=== PATIENT | male | born 2005 | race Native Hawaiian/Other Pacific Islander ===

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

== ENCOUNTER 2023-01-13 15:38 | Outpatient (AMB) | payer OTHER, SELFPAY ==
[2023-01-13 15:40] VITALS: BP 126/82; PULSE 59; O2SAT 98; BMI 27.8
--- NOTE | 2023-01-13 15:40 | MHC.PC.OV ---
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 Required: No Allergies cashew nut Allergy (Intermediate, Verified 01/13/23 15:53) Anaphylaxis pistachio nut Allergy (Intermediate, Verified 01/13/23 15:53) Anaphylaxis Medication List - Last Reconciled 01/13/23 by ARINA Dennis epinephrine IM Tobacco use date assessed: 01/13/23 Dental Screening Dental Screen Date: 01/13/23 Did you have a dental visit in the last 12 months?: Yes Did you have a dental problem in the last 6 months where you did not have access to dental care?: No Was dental information given to patient?: Patient has dentist HPI CLAIMS ADMINISTRATOR/ Est Care HPI Details Patient is a 17-year-old male who presents today to [facility] care. Previous PCP at [facility] in [place], no medical records, will request immunization record, last visit about 6 months ago per patient. Medical history significant for environmental and seasonal allergies, patient reports that he takes dhud-ptg-[id number] allergy medication, does not remember the name. Patient reports tetanus vaccine in the past 10 years. Up-to-date with dental exam. Reports eye exam 6 months ago. Patient lives with his mother, stepfather and sister, he goes to college and studying construction. Denies concerns. [facility] Medical History No known health problems Surgical History History of surgery on arm Family History Mother No problems noted. Father No problems noted. Social History Housing: Other (dorm room ) Patient Tobacco Use Status: Never used Tobacco service: No Current occupational status: employed (employed through schooling/sports internship ) Cognitive needs: No Hearing needs: No Vision needs: No Questionnaire PHQ-9 Over the last 2 weeks, how often have you been bothered by any of the following problems? 1. Little interest or pleasure in doing things: not at all 2. Feeling down, depressed, or hopeless: not at all 3. Trouble falling or staying asleep, or sleeping too much: not at all 4. Feeling tired or having little energy: not at all 5. Poor appetite or overeating: not at all 6. Feeling bad about yourself - or that you are a failure or have let yourself or your family down: not at all 7. Trouble concentrating on things, such as reading the newspaper or watching television: not at all 8. Moving or speaking so slowly that other people could have noticed. Or the opposite - being so fidgety or restless that you have been moving around a lot more than usual: not at all 9. Thoughts that you would be better off or of hurting yourself in some way: not at all Total score: 0 Depression Screening Interpretation: Negative 48082 - PHQ-9 Billing: Yes Source: Developed by Drs. Raji Gonzalez, Frances Sheets, Davon Lazcano and colleagues, with an educational evelin from [employer]. Thrive Questionnaire Date Thrive assessed: 01/13/23 I am a: Patient What is your living situation today?: I have a steady place to live Within the past 12 months, did the food you bought not last and you didn't have the money to get more?: Never true Within the past 12 months, did you worry whether your food would run out before you got money to buy more?: Never true Currently or been in a relationship where the following occur: no concerns reported AUDIT C Alcohol Use Questionnaire (AUDIT-C) 1. How often do you have a drink containing alcohol?: Never 2. How many drinks containing alcohol do you have on a typical day when you are drinking?: 1 or 2 3. How often do you have six or more drinks on one occasion?: Never Total Score: 0 Score Reviewed/Action Taken: No JOANNA-7 AMB Questionnaire JOANNA-7 Date JOANNA - 7 assessed: 01/13/23 Feeling nervous, anxious, or on edge: 1 = Several days Not being able to stop or control worryin = Not at all Worrying too much about different things: 0 = Not at all Trouble relaxin = Not at all Being so restless that it is hard to sit still: 0 = Not at all Becoming easily annoyed or irritable: 0 = Not at all Feeling afraid as if something awful might happen: 0 = Not at all Total JOANNA-7 score (0-4 normal; 5-9 mild; 10-14 moderate; 15-21 severe): 1 Source: Developed by Drs. Raji Gonzalez, Frances Sheets, Davon Lazcano and colleagues, with an educational evelin from [employer]. JOANNA-7 Assessment Billing JOANNA-7 Assessment Tool: JOANNA-7 Assessment 81407 Review of Systems Const Denies body aches, Denies chills, Denies fever(s) and Denies headache(s) Eyes Denies change in vision ENT Denies dizziness, Denies otalgia, Denies headache(s), Denies nasal discharge, Denies sinus pain and Denies sore throat Card Denies chest pain, Denies edema, Denies lightheadedness and Denies dyspnea Resp Denies dyspnea and Denies wheezing GI Denies abdominal pain, Denies constipation, Denies diarrhea, Denies nausea and Denies vomiting Denies dysuria Musc Denies myalgias Skin/Breast Denies rash Neuro Denies dizziness and Denies headache(s) Aller/Immun Denies wheezing Physical exam (Primary Care) Vital Signs: Last Vital Signs Pulse 59 01/13/23 15:40 BP 126/82 01/13/23 15:40 Pulse Ox 98 01/13/23 15:40 Oxygen Delivery Method Room Air 01/13/23 15:40 BMI result Body Mass Index 27.8 Tobacco/Smoking Status: Tobacco use Status Tobacco use date assessed 01/13/23 01/13/23 15:48 Patient Tobacco Use Status Never used Tobacco 01/13/23 15:48 PHQ-9: PHQ-9 Score PHQ-9: Total score 0 01/13/23 15:48 Depression Screening Interpretation: Negative Thrive Assessment: Date of Thrive Assessment Date Thrive assessed 01/13/23 01/13/23 15:48 Currently or been in a relationship where the following occur: no concerns reported Const General: cooperative and no acute distress Orientation/consciousness: patient oriented x3 HENMT Head: Yes normocephalic and Yes atraumatic Ears: TM's normal bilaterally Face and sinus: Yes sinuses nontender Mouth: oropharynx normal and moist mucous membranes Throat: Yes posterior oropharynx normal Eyes General: appearance normal, both eyes and all related structures Pupils: Equal, round and reactive pupils present EOM: EOMs intact bilaterally Neck Neck: Yes normal visual inspection, Yes full ROM and Yes no lymphadenopathy Thyroid: Thyroid normal Resp Effort & Inspection: normal respiratory effort and able to speak in complete sentences Auscultation: clear to auscultation bilaterally, no crackles, no rales, no rhonchi and no wheezes Cardio Rate: regular rate Rhythm: regular rhythm Heart sounds: S1 normal heart sound present, S2 normal heart sound present and no murmurs GI Palpation (GI): Soft to palpation, not firm, nontender, no guarding, not rigid and no hepatosplenomegaly Auscultation: normal bowel sounds General: No CVA tenderness Back/Spine/Pelvis Back: No CVA tenderness Skin General skin exam: no rashes or lesions noted Neuro General: patient oriented x3 Cranial nerves: Yes Equal, round and reactive pupils present Gait exam (Neuro): Normal gait present Extrem General: Yes full ROM and No edema Assessment and Plan Assessment & Plan (1) Encounter to establish care: Code(s): Z.89 - Persons encountering health services in other specified circumstances Plan: Patient presents to establish care, blood work ordered (2) Environmental and seasonal allergies: Code(s): J30.89 - Other allergic rhinitis Plan: Patient reports that he takes duov-lwh-bppakvg allergy medication -does not remember the name Orders: Orders Vitamin D 25-OH Total Today - Persons encountering health services in other specified circumstances TSH reflex Free T4 Today - Persons encountering health services in other specified circumstances Comprehensive Met. Panel Today - Persons encountering health services in other specified circumstances Vitamin B12 and Folate Today - Persons encountering health services in other specified circumstances Complete Blood Count Auto Diff Today - Persons encountering health services in other specified circumstances Coding Level of Care Code New Pt Level 3 (77020) Diagnoses Encounter to establish care Environmental and seasonal allergies J30. Additional Codes JOANNA-7 Assessment Billing - JOANNA-7 Assessment Tool: JOANNA-7 Assessment [id number] ([id number])
== END 2023-01-13 16:03 | disposition home or self-care (01) ==
PROVIDERS: PCP Nurse Practitioner Family; Visit Provider Nurse Practitioner Family
DX: Z76.89 Persons encountering health services in other specified circumstances (principal); J30.89 Other allergic rhinitis
CPT/HCPCS: 99203

== ENCOUNTER 2023-01-13 16:19 | Outpatient (REF) | payer OTHER, SELFPAY ==
[2023-01-13 16:39] LABS: MANUAL DIFF FLAG NO
[2023-01-13 16:52] LABS: Basophils Percent Auto 0.3 % (0-2); Eosinophils Absolute Auto 0.1 X10*3/uL (0.0-0.4); Hematocrit 41.8 % (42.0-52.0); Hemoglobin 14.1 g/dl (14.0-18.0); Imm Gran Abs Auto 0.02 X10*3/uL (0.00-0.03); Imm Gran Pct Auto 0.3 % (0.0-0.4); Lymphocytes Absolute Auto 1.6 X10*3/uL (1.2-4.9); Mean Corpuscular HGB Conc 33.7 g/dl (31.0-36.0); Mean Corpuscular Volume 85.8 fL (80.0-98.0); Mean Platelet Volume 8.9 fL (9.4-12.4); Monocytes Absolute Auto 0.7 X10*3/uL (0.1-1.2); Monocytes Percent Auto 11.6 % (2-11); Neutrophils Absolute Auto 3.4 x10*3/uL (2.0-8.3); Neutrophils Percent Auto 58.8 % (45-73); Platelet Count 283 X10*3/uL (160-400); Red Blood Count 4.87 X10*6/uL (4.60-5.80); Red Cell Distribution Width 11.9 % (11.0-16.0); White Blood Count 5.8 X10*3/uL (4.8-10.8)
[2023-01-13 18:06] LABS: Alanine Aminotransferase 50 U/L (0-40); Albumin Level 4.7 g/dL (3.5-5.0); Alkaline Phosphatase 46 U/L (39-117); Anion Gap 14 (12-20); Aspartate Amino Transferase 84 U/L (5-37); Bilirubin Total 0.4 mg/dL (0.0-1.0); Blood Urea Nitrogen 16 mg/dL (9-16); Calcium 9.8 mg/dL (8.4-10.2); Carbon Dioxide 27 mmol/L (22-29); Chloride 102 mmol/L (96-108); Estimated Glomerular Filt Rate > 60; Glucose Random 89 mg/dL (60-115); Potassium 3.9 mmol/L (3.3-5.1); Sodium 139 mmol/L (135-145)
[2023-01-13 18:22] LABS: TSH reflex Free T4 0.75 uIU/mL (0.32-4.0); Vitamin D 25-OH Total 30.1 ng/mL (>30)
[2023-01-13 18:30] LABS: Folate 14.2 ng/mL (> or = 4.0); Vitamin B12 366 pg/mL (200-900)
== END 2023-01-13 16:20 | disposition home or self-care (01) ==
LOC: HO.LAB 16:19
PROVIDERS: Visit Provider Nurse Practitioner Family
DX: Z76.89 Persons encountering health services in other specified circumstances (principal); Z20.2 Contact with and (suspected) exposure to infections with a predominantly sexual mode of transmission; R79.89 Other specified abnormal findings of blood chemistry
CPT/HCPCS: 36415; 80053; 82306; 82607; 82746; 84443; 85025

== ENCOUNTER 2023-02-25 13:56 | Outpatient (REF) | payer OTHER, SELFPAY ==
[2023-02-25 14:55] LABS: Alanine Aminotransferase 25 U/L (0-40); Albumin Level 4.7 g/dL (3.5-5.0); Alkaline Phosphatase 49 U/L (39-117); Aspartate Amino Transferase 17 U/L (5-37); Bilirubin Direct 0.1 mg/dL (0.0-0.5); Bilirubin Total 0.4 mg/dL (0.0-1.0); Total Protein 8.1 g/dL (6.5-8.0)
[2023-02-26 03:57] LABS: HBS Num1 1.89 mIU/mL (0-7.99); HBc Num1 0.08 S/CO (0.00-0.79); Hepatitis A Antibody IgM 0.25 Index (0-0.79); Hepatitis B Core Antibody Nonreactive (Nonreactive); Hepatitis B Surface Antigen Negative (Negative); ~HepC Num1 0.07 S/CO (0.00-0.79); ~Hepatitis A Antibody IgM Nonreactive (Nonreactive); ~Hepatitis B Surface Antibody NONREACTIVE (Nonreactive); ~Hepatitis C Antibody Nonreactive (Nonreactive)
== END 2023-02-25 13:57 | disposition home or self-care (01) ==
LOC: HO.LAB 13:56
PROVIDERS: PCP Nurse Practitioner Family; Visit Provider Nurse Practitioner Family
DX: R79.89 Other specified abnormal findings of blood chemistry (principal)
CPT/HCPCS: 36415; 80076; 86704; 86706; 86709; 86803; 87340

== ENCOUNTER 2023-11-16 08:46 | Outpatient (AMB) | payer BC, SELFPAY ==
--- NOTE | 2023-11-16 08:50 | MHC.PC.OV ---
Vital Signs 11/16/23 08:54 Height 5 ft 6 in Weight 163 lb 4 oz BMI 26.3 BP 120/60 Blood Pressure Location Lt brachial Position Sitting Pulse 66 Pulse Source Pulse Oximeter Pulse Oximetry (%) 99 Oxygen Delivery Method Room Air Intake Visit Reasons: Annual exam Intake Note: Patient is here today for a physical, KARMEN from [place] Tester Required: No Tour Escort: Not Required per policy Accompanied by: Self / Same As Patient Allergies cashew nut Allergy (Intermediate, Verified 11/16/23 09:19) Anaphylaxis pistachio nut Allergy (Intermediate, Verified 11/16/23 09:19) Anaphylaxis Seasonal Allergies Allergy (Intermediate, Verified 11/16/23 09:19) Runny Nose Medication List - Last Reconciled 11/16/23 by Bairon Dennison MD epinephrine 0.3 mg (0.3 mL) IM ONCE Tobacco use date assessed: 11/16/23 Dental Screening Dental Screen Date: 11/16/23 Did you have a dental visit in the last 12 months?: Yes Did you have a dental problem in the last 6 months where you did not have access to dental care?: No Was dental information given to patient?: Patient has dentist HPI Annual exam HPI Details 18-year-old male presents to the office requesting an annual physical. [facility] Medical History No known health problems Surgical History History of surgery on arm Family History Mother No problems noted. Father Substance use disorder Social History Housing: Other (dorm room ) Alcohol intake: never Patient Tobacco Use Status: Never used Tobacco e-Cigarette/Vaping Use: Never Used Second Hand Smoke Exposure: No service: No Current occupational status: employed (employed through schooling/information technology internship ) Cognitive needs: No Hearing needs: No Vision needs: No Questionnaire PHQ-9 Over the last 2 weeks, how often have you been bothered by any of the following problems? 1. Little interest or pleasure in doing things: not at all 2. Feeling down, depressed, or hopeless: not at all 3. Trouble falling or staying asleep, or sleeping too much: not at all 4. Feeling tired or having little energy: not at all 5. Poor appetite or overeating: not at all 6. Feeling bad about yourself - or that you are a failure or have let yourself or your family down: not at all 7. Trouble concentrating on things, such as reading the newspaper or watching television: not at all 8. Moving or speaking so slowly that other people could have noticed. Or the opposite - being so fidgety or restless that you have been moving around a lot more than usual: not at all 9. Thoughts that you would be better off or of hurting yourself in some way: not at all Total score: 0 Depression Screening Interpretation: Negative Depression Screening Done: Yes Source: Developed by Drs. Raji Gonzalez, Frances Sheets, Davon Lazcano and colleagues, with an educational evelin from [employer]. Thrive Questionnaire Date Thrive assessed: 11/16/23 I am a: Patient What is your living situation today?: I have a steady place to live Within the past 12 months, did the food you bought not last and you didn't have the money to get more?: Never true Within the past 12 months, did you worry whether your food would run out before you got money to buy more?: Never true Do you have trouble paying for medicines?: No Do you have trouble getting transportation to medical appointments?: No Do you have trouble paying your heating and electricity bill?: No Do you have trouble taking care of your child, family member or friend?: No Do you have trouble with day-to-day activities such as bathing, preparing meals, shopping, managing finances, etc.?: No Are you currently unemployed and looking for a job?: No Are you interested in more education?: No Currently or been in a relationship where the following occur: No concerns reported THRIVE Score: 0 AUDIT C Alcohol Use Questionnaire (AUDIT-C) 1. How often do you have a drink containing alcohol?: Never Total Score: 0 JOANNA-7 AMB Questionnaire JOANNA-7 Date JOANNA - 7 assessed: 11/16/23 Feeling nervous, anxious, or on edge: 0 = Not at all Not being able to stop or control worryin = Not at all Worrying too much about different things: 0 = Not at all Trouble relaxin = Not at all Being so restless that it is hard to sit still: 0 = Not at all Becoming easily annoyed or irritable: 0 = Not at all Feeling afraid as if something awful might happen: 0 = Not at all Total JOANNA-7 score (0-4 normal; 5-9 mild; 10-14 moderate; 15-21 severe): 0 Source: Developed by Drs. Raji Gonzalez, Frances Sheets, Davon Lazcano and colleagues, with an educational evelin from [employer]. Physical exam (Primary Care) Vital Signs: Last Vital Signs Pulse 66 11/16/23 08:54 BP 120/60 11/16/23 08:54 Pulse Ox 99 11/16/23 08:54 Oxygen Delivery Method Room Air 11/16/23 08:54 BMI result Body Mass Index 26.3 Tobacco/Smoking Status: Tobacco use Status Tobacco use date assessed 11/16/23 11/16/23 08:55 Patient Tobacco Use Status Never used Tobacco 11/16/23 08:57 e-Cigarette/Vaping Use Never Used 11/16/23 08:57 PHQ-9: PHQ-9 Score PHQ-9: Total score 0 11/16/23 08:53 Depression Screening Interpretation: Negative Thrive Assessment: Date of Thrive Assessment Date Thrive assessed 11/16/23 11/16/23 08:53 Currently or been in a relationship where the following occur: No concerns reported Const General: cooperative and healthy appearing Nutritional Appearance: well nourished Orientation/consciousness: patient oriented x3 Limitations: no limitations HENMT Head: Yes normal to inspection Eyes General: appearance normal, both eyes and all related structures Neck Neck: Yes normal visual inspection Chest Chest palpation & inspection: normal palpation of entire chest wall Resp Effort & Inspection: normal respiratory effort Neuro General: patient oriented x3 Assessment and Plan Assessment & Plan (1) Annual physical exam: Code(s): Z00.00 - Encounter for general adult medical examination without abnormal findings Plan: Blood work ordered. Albuterol inhaler ordered for reactive airway disease. Will call with the results. Coding Level of Care Code Est Pt Prev Care 18-39y(12045) Diagnoses Annual physical exam Z00.00
[2023-11-16 08:54] VITALS: BP 120/60; PULSE 66; O2SAT 99; BMI 26.3
== END 2023-11-16 09:23 | disposition home or self-care (01) ==
PROVIDERS: PCP Internal Medicine; Visit Provider Internal Medicine
DX: Z00.00 Encounter for general adult medical examination without abnormal findings (principal)
CPT/HCPCS: 99395

== ENCOUNTER 2024-06-28 11:05 | Outpatient (AMB) | payer BC, SELFPAY ==
--- NOTE | 2024-06-28 11:15 | MHC.PC.OV ---
Vital Signs 06/28/24 11:16 Height 5 ft 6 in Weight 157 lb BMI 25.3 BP 118/64 Blood Pressure Location Lt brachial Position Sitting Pulse 67 Pulse Source Pulse Oximeter Pulse Oximetry (%) 98 Oxygen Delivery Method Room Air Intake Visit Reasons: eye infection Store Associate Required: No Accompanied by: Self / Same As Patient Allergies cashew nut Allergy (Intermediate, Verified 06/28/24 11:38) Anaphylaxis pistachio nut Allergy (Intermediate, Verified 06/28/24 11:38) Anaphylaxis Seasonal Allergies Allergy (Intermediate, Verified 06/28/24 11:38) Runny Nose Medication List - Last Reconciled 06/28/24 by Emily Brand PA-C epinephrine 0.3 mg (0.3 mL) IM ONCE Tobacco use date assessed: 06/28/24 Dental Screening Dental Screen Date: 06/28/24 Did you have a dental visit in the last 12 months?: Yes Did you have a dental problem in the last 6 months where you did not have access to dental care?: No Was dental information given to patient?: Patient has dentist HPI eye infection HPI Details 19-year-old male with past medical history of seasonal allergies last seen 10/2023 coming in for acute problem. Presenting with a persistent eyelid sty. The sty has been present since late May, initially treated with erythromycin ointment he had at home and warm compresses. Despite these efforts and additional attempts to massage as per [facility]' recommendation, the condition remains unresponsive. The persistent sty has resisted drainage, and compresses now seem to exacerbate inflammation and erythema. [facility] Medical History No known health problems Surgical History History of surgery on arm Family History Mother No problems noted. Father Substance use disorder Social History Housing: Other (dorm room ) Alcohol intake: never Patient Tobacco Use Status: Never used Tobacco e-Cigarette/Vaping Use: Never Used Second Hand Smoke Exposure: No service: No Current occupational status: employed (employed through schooling/exercise science internship ) Cognitive needs: No Hearing needs: No Vision needs: No Questionnaire PHQ-9 Over the last 2 weeks, how often have you been bothered by any of the following problems? 1. Little interest or pleasure in doing things: not at all 2. Feeling down, depressed, or hopeless: not at all 3. Trouble falling or staying asleep, or sleeping too much: not at all 4. Feeling tired or having little energy: not at all 5. Poor appetite or overeating: not at all 6. Feeling bad about yourself - or that you are a failure or have let yourself or your family down: not at all 7. Trouble concentrating on things, such as reading the newspaper or watching television: not at all 8. Moving or speaking so slowly that other people could have noticed. Or the opposite - being so fidgety or restless that you have been moving around a lot more than usual: not at all 9. Thoughts that you would be better off or of hurting yourself in some way: not at all Total score: 0 Depression Screening Interpretation: Negative Depression Screening Done: Yes Source: Developed by Drs. Raji Gonzalez, Frances Sheets, Davon Lazcano and colleagues, with an educational evelin from [employer] Thrive Questionnaire Date Thrive assessed: 06/28/24 I am a: Patient What is your living situation today?: I have a steady place to live Within the past 12 months, did the food you bought not last and you didn't have the money to get more?: Never true Within the past 12 months, did you worry whether your food would run out before you got money to buy more?: Never true Do you have trouble paying for medicines?: No Do you have trouble getting transportation to medical appointments?: No Do you have trouble paying your heating and electricity bill?: No Do you have trouble taking care of your child, family member or friend?: No Do you have trouble with day-to-day activities such as bathing, preparing meals, shopping, managing finances, etc.?: No Are you currently unemployed and looking for a job?: No Are you interested in more education?: No Please select the resources that you would like help with: None Currently or been in a relationship where the following occur: No concerns reported THRIVE Score: 0 AUDIT C Alcohol Use Questionnaire (AUDIT-C) 1. How often do you have a drink containing alcohol?: Never 3. How often do you have six or more drinks on one occasion?: Never Total Score: 0 JOANNA-7 AMB Questionnaire JOANNA-7 Date JOANNA - 7 assessed: 06/28/24 Feeling nervous, anxious, or on edge: 0 = Not at all Not being able to stop or control worryin = Not at all Worrying too much about different things: 0 = Not at all Trouble relaxin = Not at all Being so restless that it is hard to sit still: 0 = Not at all Becoming easily annoyed or irritable: 0 = Not at all Feeling afraid as if something awful might happen: 0 = Not at all Total JOANNA-7 score (0-4 normal; 5-9 mild; 10-14 moderate; 15-21 severe): 0 Source: Developed by Drs. Raji Gonzalez, Frances Sheets, Davon Lazcano and colleagues, with an educational evelin from [employer] Review of Systems Const Denies body aches, Denies chills, Denies fever(s), Denies headache(s) and Denies poor appetite Eyes Reports no additional complaints ENT Denies dysphagia, Denies dizziness, Denies headache(s) and Denies odynophagia Card Denies chest pain, Denies syncope, Denies edema, Denies irregular heart rhythm, Denies lightheadedness and Denies dyspnea Resp Denies cough and Denies dyspnea GI Denies abdominal pain, Denies constipation, Denies dysphagia, Denies diarrhea, Denies nausea, Denies odynophagia and Denies vomiting Reports no additional complaints Musc Reports no additional complaints and Denies abnormal gait Skin/Breast Reports system reviewed and no additional complaints, except as documented Neuro Denies abnormal gait, Denies dizziness, Denies syncope and Denies headache(s) Psych Reports no additional complaints Physical exam (Primary Care) Vital Signs: Last Vital Signs Pulse 67 06/28/24 11:16 BP 118/64 06/28/24 11:16 Pulse Ox 98 06/28/24 11:16 Oxygen Delivery Method Room Air 06/28/24 11:16 BMI result Body Mass Index 25.3 Tobacco/Smoking Status: Tobacco use Status Tobacco use date assessed 06/28/24 06/28/24 11:18 Patient Tobacco Use Status Never used Tobacco 06/28/24 11:18 e-Cigarette/Vaping Use Never Used 06/28/24 11:18 PHQ-9: PHQ-9 Score PHQ-9: Total score 0 06/28/24 11:45 Depression Screening Interpretation: Negative Thrive Assessment: Date of Thrive Assessment Date Thrive assessed 06/28/24 06/28/24 11:18 Currently or been in a relationship where the following occur: No concerns reported Const General: cooperative, healthy appearing, comfortable and no acute distress Orientation/consciousness: patient oriented x3 HENMT Head: Yes normocephalic Ears: hearing grossly normal bilaterally General nose exam: Normal external nose present Face images: 1. stye Eyes General: appearance normal, both eyes and all related structures Conjunctivae: conjunctivae normal Neck Neck: Yes full ROM and Yes no lymphadenopathy Resp Effort & Inspection: normal respiratory effort Auscultation: clear to auscultation bilaterally, no crackles, no rales, no rhonchi and no wheezes Cardio Rate: regular rate Rhythm: regular rhythm Skin General skin exam: no rashes or lesions noted Neuro General: patient oriented x3 Gait exam (Neuro): Normal gait present Extrem General: Yes normal to inspection, Yes full ROM and No edema Psych Affect: normal affect Attitude: cooperative Insight: Good insight present (Psych) Judgement: Good judgement present (Psych) Coding Level of Care Code Est Pt Level 3 (13803) Diagnoses Stye H00.019 Assessment & Plan Assessment & Plan (1) Stye: Code(s): H00.019 - Hordeolum externum unspecified eye, unspecified eyelid Category: Medical Plan: The patient will begin a new topical antibiotic regimen different from erythromycin. He is instructed to maintain eyelid hygiene using baby shampoo to prevent potential reinfection, and warm compresses should be applied directly on the eyelid two to three times daily for optimal effect. Continuous communication via the patient portal is recommended to monitor progress, with oral antibiotics as a last resort if other measures fail. Plan Patient was informed and verbally consented to the use of an ambient scribe for clinic note documentation during this visit. This note was constructed using voice recognition software. While every effort has been made to ensure accuracy and outpatient facility physical therapist, still areas may have been included sometimes these areas may affect the content or meeting of the given symptoms. Total time spent caring for the patient today was 20 minutes. This includes time spent before the visit reviewing the chart, time spent during the visit, and time spent after the visit and documentation. Medications: New erythromycin 0.5 inches ophthalmic (eye) BID 3.5 grams 0RF
[2024-06-28 11:16] VITALS: BP 118/64; PULSE 67; O2SAT 98; BMI 25.3
--- OUTSIDE RECORDS SUMMARY | 2024-06-28 13:23 | XMS_ITS | Encounter Summary ---
Author Organization [facility] Address [address] [place] [address] Phone Care Team Providers Care Disability Manager Name Role Phone Verna Coronado NP Primary Care Provider [phone] Encounter Details Date Type Department Care Team (Late st Contact Info) Description 12/16/2016 Conversion Encounter [facility] [address] [address] Social History Tobacco Use Types Packs/Day Years Used Date Smoking Tobacco: Never Assessed Sex and Gender Information Value Date Recorded Sex Assigned at Not on file Legal Sex Male 6:32 PM EDT Gender Identity Not on file Sexual Orientation Not on file documented as of this encounter Plan of Treatment Not on file documented as of this encounter Visit Diagnoses Not on filedocumented in this encounter Care Teams Disability Manager Relationship Specialty Start Date End Date Verna Coronado NP [address] [place] [address] PCP - General Pediatrics 10/19/22 documented as of this encounter
--- OUTSIDE RECORDS SUMMARY | 2024-06-28 13:23 | XMS_ITS | Clinical Summary ---
Author Organization [facility] Address [address] [place] [address] Care Team Providers Care High School Science Tutor Name Role Phone Mina Centeno MD Primary Care Provider Unavaila ble Mina Centeno MD Unavailable Unavailable Allergies Active Allergy Reactions Criticality Noted Date Comments Nuts 03/05/2014 Medications Montelukast Sodium (SINGULAIR) 5 MG chewable tablet CHEW AND SWALLOW 1 TABLET DAILY. 30 3 02/19/2014 Active Mometasone Furoate (Nasonex) 50 MCG/ACT nasal spray USE 1 SPRAY IN EACH NOSTRIL TWICE DAILY. 1 2 07/12/2014 Active Active Problems Problem Noted Date Diagnosed Date Viral tonsillitis 07/16/2014 Overview (06/05/2023): Impression - 16Jul2014: Rapid strep negative, PE not convincing for strep so culture not sent. Llikely viral in origin, will give 6 doses of prednisone to try to decrease tonsil size. Spoke with dad about normal progression of illness and discussed supportive care measures Allergic rhinitis 07/08/2014 Asthma, mild intermittent 03/05/2014 Overview (06/05/2023): Impression - 16Jul2014: Well controlled on Singulair. No albuterol use in over a year per patient and dad. Has never been on ICS as an older child. Should consider trialing off Singulair and using Claritin or Zyrtec for allergies but dad wanted to talk to Dr. Centeno about this Immunizations Name Administration Dates Next Due DTaP 08/01/2007, 5,2003,07/15,2003 Hep B (adult) 2003,2003,2003 Hib (PRP-OMP) 06/09/2004, 4,2003,05/14 IPV 08/01/2007, 4,2003,05/14 Influenza (SEASONAL) - 03/11/2014 Influenza,split(incl.purifie d surface antigen) 01/09/2013,02/23/2012 MMR 08/01/2007,03/09/2004 Meningococcal ACWY (Menactra) 03/11/2014 PCV-7 06/09/2004, 4,2003,05/14 State H1N1 Vaccine,injection 05/05/2009 Tdap 03/11/2014 Varicella 09/24/2009,03/09/2004 Social History Tobacco Use Types Packs/Day Years Used Date Smoking Tobacco: Never Assessed Sex and Gender Information Value Date Recorded Sex Assigned at Not on file Legal Sex Male 2:03 PM EDT Gender Identity Not on file Sexual Orientation Not on file Last Filed Vital Signs Vital Sign Reading Time Taken Comments Blood Pressure 94/64 01/08/2014 2:24 PM EDT Pulse - - Temperature 37.5 ??C (99.5 ??F) 07/16/2014 10:37 AM E DT Respiratory Rate - - Oxygen Saturation - - Inhaled Oxygen Concentration - - Weight 45.4 kg (100 lb) 07/16/2014 10:37 AM EDT Height 136.5 cm (4' 5.75 ) 01/08/2014 2:24 PM ED T Body Mass Index - - Plan of Treatment Health Maintenance Due Date Last Done Comments Hepatitis C Screening 2003 HPV Vaccine (1 - Male 3-dose series) 2018 COVID-19 Vaccine ( - season) 2024 Influenza (#1) 2024 03/11/2014, 12/31, 02/23/2012 DTaP/Tdap/Td (7 - Td or Tdap) 03/11/2024 03/11/2014, 08/01/2007, 09/07/2004, Additional history exists Zoster (Shingrix) (1 of 2) 2053 09/24/2009, Hep B Completed 2003, 08/31, 2003 Hib Completed 06/09/2004, 08/31, 2003, Additional history exists Pneumococcal Aged Out 06/09/2004, 10/31, 2003, Additional history exists No longer eligible based on patient's age to complete this topic MMR Completed 08/01/2007, 03/09/2004 Polio (IPV/OPV) Completed 08/01/2007, 10/31, 2003, Additional history exists Varicella Completed 09/24/2009, 03/09/2004 Meningococcal ACWY Aged Out 03/11/2014 No longer eligible based on patient's age to complete this topic Hep A Aged Out No longer eligi ble based on patient's age to complete this topic Care Teams High School Science Tutor Relationship Specialty Start Date End Date Mina Centeno MD PCP - General 12/06/22 Mina Centeno MD PCP - Backup PCP Pediatrics 06/02/23
--- OUTSIDE RECORDS SUMMARY | 2024-06-28 13:23 | XMS_ITS | Data Portability ---
Author Organization [facility] [id number] Address [address] [place] [address] Assessment No assessment recorded. Plan of Treatment Reminders Order Date Submit Date Provider Last Modified By Organization Details Last Modified Time Details Appointments None record ed. Lab None record ed. Referral None record ed. Procedures None record ed. Surgeries None record ed. Imaging None record ed. Medication Orders None record ed. Patient TargetsNo targets recorded. Patient InstructionsNo instructions recorded. Reason for Referral None Reported. Procedures Surgical History Date Name Laterality Status Provider Name and Address Organization Details Recorded Time OC-UDS Send Out Template NON DOT completed Carla Michael [facility] 09/13/2022 14:51:38 Imaging Results None recorded. Procedure Notes None recorded. Medical Equipment None Reported. Medications Name Sig Start Date Stop Date Status Note LastModified by Organization Details LastModified Time triamcinolon e acetonide 0.1 % topical cream APPLY TO AFFECTED AREA TWICE A DAY FOR 7 DAYS active Not Available Not Available No t Available hydrocortiso ne valerate 0.2 % topical ointment APPLY TO AFFECTED AREA TWICE A DAY FOR 14 DAYS active Not Available Not Available No t Available sertraline 25 mg tablet TAKE 1 TABLET BY MOUTH EVERY DAY active Not Available Not Available No t Available epinephrine 0.3 mg/0.3 mL injection, auto-injecto r PLEASE SEE ATTACHED FOR DETAILED DIRECTIONS active Not Available Not Available N ot Available Vitals None Recorded Social History None recorded. Functional Status None recorded. Mental Status None recorded. Family History Nothing Reported. Medical History No medical history recorded. Past Encounters Encounter ID Performer Location Encounter Start Date Encounter Closed Date Diagnosis/Indication Diagnosis SNOMED-CT Code Diagnosis ICD10 Code Diagnosis Note [id number] [place] [address] [facility] DWAINE Gutierrez [phone] 09/13/2022 14:30:47 09/13/2022 14:52:54 History and physical examination, occupation [id number] Z02.1 Health Concerns Section Related Observation LastModified by Organization Detai ls LastModified Time None Recorded Concern Status LastModified by Organization Details LastModified Time None Recorded Advance Directives Directive None Recorded Payers Encounter Date Sequence Insurance Name Policy Number Policy Ibrahim Covered Member ID Ibrahim Member ID Guarantor Name 09/13/2022 OC-ESCREEN Geraldo Godfrey [id number] LAINEY begum
--- OUTSIDE RECORDS SUMMARY | 2024-06-28 13:23 | XMS_ITS | Clinical Summary ---
Author Organization [facility] Address [address] [place] [phone] Phone Care Team Providers Care Machine Puller Name Role Phone Jessicadonald Verna JOHNIE Primary Care Provider [phone] Allergies Active Allergy Reactions Criticality Noted Date Comments Environmental Bunnies ,dog,dust ,dust mites ,grasses,leaves ,pollen ,trees ,mold Food Cashew Pistachio Nut (Diagnostic) Medications DiphenhydrAMINE HCl (BENADRYL ALLERGY PO) Benadryl; 0; 09/03/2014; Active 5 Active albuterol HFA 108 (90 Base) MCG/ACT inhaler Inhale 2 puffs every 6 (six) hours as needed for wheezing. Active hydrOXYzine 25 MG tabletIndicatio ns:Anxiety with depression Take 1 tablet (25 mg total) by mouth every 6 (six) hours as needed for anxiety. 10 tablet 1 1 Active Additional Information Patient not taking.Reported on 08/02/2022 triamcinolone 0.1 % creamIndication s:Irritant contact dermatitis due to plants, except food APPLY TO AFFECTED AREA TWICE A DAY FOR 7 DAYS 30 g 1 2 Active EPINEPHrine (EpiPen 2-Reinier) 0.3 MG/0.3ML injection syringeIndicati ons:Allergic reaction, subsequent encounter Inject into muscle immediately for signs of anaphylaxis AND call 911. 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 Anemia 03/10/2017 Overview (03/30/2018): Anemia, unspecified (285.9) Onset: 03/10/2017 Added by: Stacy Orozco Other acne 09/03/2014 Overview (03/30/2018): Acne (706.1) Onset: 09/03/2014 Added by: Treva Russo Allergy 09/03/2014 Overview (03/30/2018): Allergy, unspecified (995.3) Onset: 09/03/2014 Added by: Treva Russo Intrinsic eczema 09/03/2014 Overview (03/30/2018): Atopic eczema (691.8) Onset: 09/03/2014 Added by: Treva Russo Immunizations Immunization Administration Dates Next Due DTaP 5 08/01/2007, 8,09/07/2004,09/07,2003,2003,2003 ,2003,2003,2003 HPV Vaccine 9 Valent 09/09/2016,03/02/2016 Hep A, ped/adol 03/09/2018,03/10/2017 Hep B, ped/adol 2003, 4,2003,09/22,2003,2003 Hib (PRP-T) 06/09/2004, 5,2003,09/22,2003,2003,2003 ,2003 IPV 08/01/2007, 8,2003,11/24,2003,2003,2003 ,2003 Influenza, injectable, quadr ivalent, preservative free 02/02/2020,02/13/2019,03/09/2018,03/10,03/02/2016,01/15/2015 MMR 08/01/2007,03/09/2004,03/09/2004 MMRV 08/01/2007 Meningococcal Conj (Menactra) MCV4P 05/10/2019,0 01/15/2015 Pneumococcal Conjugate 06/09/2004,2004,2003,11/24,2003,2003,2003 ,2003 Tdap 01/15/2015 Varicella 09/24/2009,03/09/2004,03/09/2004 Family History Medical History Relation Name Comments No Known Problems Mother Lupe Asthma Sister Elizabeth Relation Name Status Comments Father Alive Father: Obesity , Migraines, Hypertension Maternal Grandfather Alive Materna l grandfather: Alive and well Maternal Grandmother Materna l grandmother: Thyroid disease Mother Lupe Alive Mother: Obesity , Alive and well Other 1 aunt: Diabetes mellitus Other 2 Family history of Migraines, Family history of Strabismus/amblyopia Paternal Grandfather Paterna l grandfather: Asthma Paternal Grandmother FPatern al grandmothe: Fibromyalgia Sister Elizabeth Alive Social History Tobacco Use Types Packs/Day Years Used Date Smoking Tobacco: Never Smokeless Tobacco: Never Comments:Never Smoker Alcohol Use Standard Drinks/Week Comments Not Currently 0 (1 standard drink = 0.6 oz pur e alcohol) Social Hunger/Food Answer Date Recorded In the last 12 months, did y ou or your family ever eat less than you felt you should because there wasn't enough money for food? No 08/02/2022 Stable Housing Answer Date Recorded Are you worried that in the next 2 months you may not have stable housing? No 08/02/2022 Transportation Concerns Answer Date Rec orded In the last 12 months, have you or your family ever had to go without healthcare because you didn't have a way to get there? No 08/02/2022 Hazards in Home Answer Date Recorded Think about the place you li ve. Do you have problems with any of the following? Pests (mice or roaches), mold, no/not working smoke detectors, water leaks, no window guards. No 2022 Financing Utilities Answer Date Recorde d In the last 12 months, has t he electric, gas, oil, or water company threatened to shut off your services in your home? No 08/02/2022 Safety at Home Answer Date Recorded Are you or your family worried about feeling saf e in your home? No 08/02/2022 Outside Support Answer Date Recorded Do you feel that you need mo re support from other people or programs to help you care for yourself or your family? No 08/02/2022 Understanding Health Concerns Answer Da te Recorded Do you need help understandi ng your or your child's healthcare needs (diagnosis, medications, plan, etc.)? No 08/02/2022 Financing Health Concerns Answer Date R ecorded In the last 12 months, was t here a time when your child needed to see a doctor or get medications or supplies but could not because of cost? No 08/02/2022 Missing School or Work Answer Date Pascual rded Did you or your child miss s chool or work because of a health problem that could have been avoided? No 08/02/2022 Sex and Gender Information Value Date Recorded Sex Assigned at Not on file Legal Sex Male 6:32 PM EDT Gender Identity Not on file Sexual Orientation Not on file Last Filed Vital Signs Vital Sign Reading Time Taken Comments Blood Pressure 130/60 08/02/2022 3:12 PM EDT Pulse 72 07/28/2021 3:19 PM EDT Temperature 36.3 ??C (97.3 ??F) 08/02/2022 3:12 PM ED T Respiratory Rate - - Oxygen Saturation - - Inhaled Oxygen Concentration - - Weight 74.4 kg (164 lb) 08/02/2022 3:12 PM EDT Height 167 cm (5' 5.75 ) 08/02/2022 3:12 PM EDT Body Mass Index 26.67 08/02/2022 3:12 PM EDT Plan of Treatment Health Maintenance Due Date Last Done Comments Men B Vaccine (1 of 2 - Standard) 2019 Influenza Vaccines (#1) 2023 02/04/20 23, 01/29/2022, 03/08/2021, Additional history exists COVID-19 Vaccine (4 - 2023-2 5 season) 2024 03/08/2021, 08/27/2020, 08/06/2020 DTaP,Tdap,and Td Vaccines (7 - Td or Tdap) 01/15/2025 01/15/2015, 08/01/2007, 08/01/2007, Additional history exists Hepatitis B Vaccines Completed 2003, 2003, 2003, Additional history exists HIB Vaccines Completed 06/09/2004, 11/2004, 2003, Additional history exists Pneumococcal Vaccine Completed 06/09/2004, 06/09/2004, 2003, Additional history exists IPV Vaccines Completed 08/01/2007, 05/2007, 2003, Additional history exists MMR Vaccines Completed 08/01/2007, 05/2007, 03/09/2004, Additional history exists Varicella Vaccines Completed 09/24/2009, 0 08/01/2007, 03/09/2004, Additional history exists HPV Vaccines Completed 09/09/2016, 03/02/2016 Hepatitis A Vaccines Completed 03/09/2018, 03/10/20 17 Meningococcal Vaccine Completed 05/10/2019, 015 Insurance [facility] EPO OPEN ACCESS Care Teams Machine Puller Relationship Specialty Start Date End Date Verna Coronado NP [address] [facility] [place] [address] PCP - General Pediatrics 10/19/22
--- OUTSIDE RECORDS SUMMARY | 2024-06-28 13:23 | XMS_ITS | Encounter Summary ---
Author Organization [facility] Address [address] [place] [address] Phone Care Team Providers Care Spice Blender Name Role Phone Verna Coronado NP Primary Care Provider [phone] Encounter Details Date Type Department Care Team (Late st Contact Info) Description 08/28/2014 Conversion Encounter [facility] [address] [place] [address] [place] [phone] Social History Tobacco Use Types Packs/Day Years [...] on filedocumented in this encounter Care Teams Spice Blender Relationship Specialty Start Date End Date Verna Coronado NP [address] [place] [address] [place] [id number] PCP - General Pediatrics 10/19/22 documented as of this encounter
== END 2024-06-28 11:59 | disposition home or self-care (01) ==
PROVIDERS: PCP Internal Medicine
DX: H00.019 Hordeolum externum unspecified eye, unspecified eyelid (principal)

== ENCOUNTER 2024-12-26 08:00 | Outpatient (AMB) | payer BC, SELFPAY ==
[2024-12-26 08:04] VITALS: BP 124/70; PULSE 80; TEMP 36.3; O2SAT 98; BMI 27.8
--- NOTE | 2024-12-26 08:04 | A.OFFPC_ITS ---
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 Father Substance use disorder Social History Housing: Other (dorm room ) Alcohol intake: never Patient Tobacco Use Status: Never used Tobacco e-Cigarette/Vaping Use: Never Used Second Hand Smoke Exposure: No service: No Current occupational status: employed (employed through schooling/plumber maintenance ) Cognitive needs: No Hearing needs: No Vision needs: No Questionnaire PHQ-9 Over the last 2 weeks, how often have you been bothered by any of the following problems? 1. Little interest or pleasure in doing things: not at all 2. Feeling down, depressed, or hopeless: not at all 3. Trouble falling or staying asleep, or sleeping too much: not at all 4. Feeling tired or having little energy: not at all 5. Poor appetite or overeating: not at all 6. Feeling bad about yourself - or that you are a failure or have let yourself or your family down: not at all 7. Trouble concentrating on things, such as reading the newspaper or watching television: not at all 8. Moving or speaking so slowly that other people could have noticed. Or the opposite - being so fidgety or restless that you have been moving around a lot more than usual: not at all 9. Thoughts that you would be better off or of hurting yourself in some way: not at all Total score: 0 Depression Screening Interpretation: Negative Depression Screening Done: Yes Source: Developed by Drs. Raji Gonzalez, Frances Sheets, Davon Lazcano and colleagues, with an educational evelin from [employer]. Thrive Questionnaire Date Thrive assessed: 06/28/24 I am a: Patient What is your living situation today?: I have a steady place to live Within the past 12 months, did the food you bought not last and you didn't have the money to get more?: Never true Within the past 12 months, did you worry whether your food would run out before you got money to buy more?: Never true Do you have trouble paying for medicines?: No Do you have trouble getting transportation to medical appointments?: No Do you have trouble paying your heating and electricity bill?: No Do you have trouble taking care of your child, family member or friend?: No Do you have trouble with day-to-day activities such as bathing, preparing meals, shopping, managing finances, etc.?: No Are you currently unemployed and looking for a job?: No Are you interested in more education?: No Please select the resources that you would like help with: None Currently or been in a relationship where the following occur: No concerns reported THRIVE Score: 0 AUDIT C Alcohol Use Questionnaire (AUDIT-C) 1. How often do you have a drink containing alcohol?: Monthly or less 2. How many drinks containing alcohol do you have on a typical day when you are drinking?: 1 or 2 3. How often do you have six or more drinks on one occasion?: Never Total Score: 1 JOANNA-7 AMB Questionnaire JOANNA-7 Date JOANNA - 7 assessed: 06/28/24 Feeling nervous, anxious, or on edge: 0 = Not at all Not being able to stop or control worryin = Not at all Worrying too much about different things: 0 = Not at all Trouble relaxin = Not at all Being so restless that it is hard to sit still: 0 = Not at all Becoming easily annoyed or irritable: 0 = Not at all Feeling afraid as if something awful might happen: 0 = Not at all Total JOANNA-7 score (0-4 normal; 5-9 mild; 10-14 moderate; 15-21 severe): 0 Source: Developed by Drs. Raji Gonzalez, Frances Sheets, Davon Lazcano and colleagues, with an educational evelin from [employer]. Physical exam (Primary Care) Vital Signs: Last Vital Signs Temp 97.3 F 12/26/24 08:04 Pulse 80 12/26/24 08:04 BP 124/70 12/26/24 08:04 Pulse Ox 98 12/26/24 08:04 Oxygen Delivery Method Room Air 12/26/24 08:04 BMI result Body Mass Index 27.8 Tobacco/Smoking Status: Tobacco use Status Tobacco use date assessed 12/26/24 12/26/24 08:08 Patient Tobacco Use Status Never used Tobacco 12/26/24 08:08 e-Cigarette/Vaping Use Never Used 12/26/24 08:08 PHQ-9: PHQ-9 Score PHQ-9: Total score 0 12/26/24 08:08 Depression Screening Interpretation: Negative Thrive Assessment: Date of Thrive Assessment Date Thrive assessed 06/28/24 12/26/24 08:08 Currently or been in a relationship where the following occur: No concerns reported Coding Level of Care Code Est Pt Prev Care [id number](44767) Diagnoses Encounter for annual physical exam Z00.00 Assessment & Plan Assessment & Plan (1) Encounter for annual physical exam: Code(s): Z00.00 - Encounter for general adult medical examination without abnormal findings Plan: History of Present Illness - The patient is a 19-year-old male presenting with an annual physical examination. - Reports headache and nasal congestion starting last night, with a fever this morning. - Denies other symptoms, sleeps well, and is not on any medications. - No history of smoking or drug use; occasional alcohol consumption. - Works indoors in [employer] and lives at home with family. 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 - Family status: Lives at home with family, has a 16-year-old sister. - Substance use: Denies smoking and drug use; occasional alcohol consumption. Review of Systems - General: Reports headache and fever. Denies other symptoms. - Respiratory: Reports nasal congestion. - Neurological: Denies any pain or trouble urinating. Physical Exam General: Cooperative and healthy appearing Nutritional Appearance: Well nourished Orientation/consciousness: Patient oriented x3 Limitations: No limitations Head: Normal to inspection General: Appearance normal, both eyes and all related structures Neck: Normal visual inspection Chest: Normal palpation of entire chest wall Respiratory: N ormal respiratory effort Neurology: Patient oriented x3, reports headache and congestion Results Plan 1. Headache - Advised to take Tylenol for headache relief. 2. Nasal Congestion - Suggested symptomatic relief with [id number] medications if needed. 3. Fever - Recommended monitoring symptoms and taking Tylenol as needed. 4. Preventative Care: Annual Physical Examination - Blood work ordered as part of the routine examination. Discussion Notes During the visit, I discussed with the patient the management of his headache and nasal congestion, recommending Tylenol for relief. We also talked about the importance of monitoring his symptoms and maintaining regular annual check-ups. Blood work was ordered as part of his routine examination. Patient Instructions - Take Tylenol as needed for headache and fever relief. - Monitor symptoms and seek medical attention if they worsen. - Schedule a follow-up appointment in one year for the next annual physical examination. Orders: Orders Complete Blood Count no Diff Today Z00.00 - Encounter for general adult medical examination without abnormal findings Liver Panel Today Z00.00 - Encounter for general adult medical examination without abnormal findings Thyroid Stimulating Hormone Today Z00.00 - Encounter for general adult medical examination without abnormal findings Basic Metabolic Panel Today Z00.00 - Encounter for general adult medical examination without abnormal findings UA and rflx microscopic Today Z00.00 - Encounter for general adult medical examination without abnormal findings
--- OUTSIDE RECORDS SUMMARY | 2024-12-26 08:04 | XMS_ITS | Encounter Summary ---
Author Organization [facility] Address [address] [place] [phone] Phone Care Team Providers Care Tower Loader Operator Name Role Phone Verna Coronado NP Primary Care Provider [phone] Encounter Details Date Type Department Care Team (Late st Contact Info) Description 08/28/2014 Conversion Encounter [facility] [address] [place] [address] [place] [address] Social History Tobacco Use Types Packs/Day Years [...] on filedocumented in this encounter Care Teams Tower Loader Operator Relationship Specialty Start Date End Date Verna Coronado NP [address] [place] [address] [place] [address] PCP - General Pediatrics 10/19/22 documented as of this encounter
--- OUTSIDE RECORDS SUMMARY | 2024-12-26 08:05 | XMS_ITS | Encounter Summary ---
Author Organization [facility] Address [address] [place] [address] Phone Care Team Providers Care Manager Hospital Name Role Phone Verna Coronado NP Primary Care Provider [phone] Encounter Details Date Type Department Care Team (Late st Contact Info) Description 12/16/2016 Conversion Encounter [facility] - [address] [address] Social History Tobacco Use Types Packs/Day Years [...] on filedocumented in this encounter Care Teams Manager Hospital Relationship Specialty Start Date End Date Verna Coronado NP [address] [facility] [place] [address] PCP - General Pediatrics 10/19/22 documented as of this encounter
--- OUTSIDE RECORDS SUMMARY | 2024-12-26 08:05 | XMS_ITS | Clinical Summary ---
Author Organization [facility] Address [address] [place] [address] Care Team Providers Care Resource Recovery Specialist Name Role Phone Mina Centeno MD Primary [...] talk to Dr. Centeno about this Immunizations Immunization Administration Dates Next Due DTaP 08/01/2007, 5,2003,07/15,2003 [...] PM EDT Pulse - - Temperature 37.5 C (99.5 F) 07/16/2014 10:37 AM EDT Respiratory Rate - - Oxygen Saturation - [...] 2018 COVID-19 Vaccine ( - season) 2024 DTaP/Tdap/Td (7 - Td or Tdap) 03/11/2024 03/11/2014, 08/01/2007, 09/07/2004, Additional history exists Influenza (#1) 2024 03/11/2014, 12/31, 02/23/2012 Zoster (Shingrix) (1 of 2) 2053 09/24/2009, [...] age to complete this topic Care Teams Resource Recovery Specialist Relationship Specialty Start Date End Date Mina Centeno MD PCP - General 12/06/22 Mina Centeno MD PCP - Backup PCP Pediatrics 06/02/23
--- OUTSIDE RECORDS SUMMARY | 2024-12-26 08:05 | XMS_ITS | Clinical Summary ---
Author Organization [facility] Address [address] [place] [phone] Phone Care Team Providers Care Body Specialist Name Role Phone Jessicadonald Verna JOHNIE Primary Care Provider [phone] Allergies Active Allergy Reactions Criticality Noted Date [...] 72 07/28/2021 3:19 PM EDT Temperature 36.3 C (97.3 F) 08/02/2022 3:12 PM EDT Respiratory Rate - - Oxygen Saturation - - Inhaled Oxygen Concentration - - Weight 74.4 kg (164 lb) 08/02/2022 3:12 PM EDT Height 167 cm (5' 5.75 ) 08/02/2022 3:12 PM EDT Body Mass Index 26.67 08/02/2022 3:12 PM EDT Plan of Treatment Health Maintenance Due Date Last Done Comments Men B Vaccine (1 of 2 - Standard) 2019 COVID-19 Vaccine (2023-2 5 season) 2024 03/08/2021, 08/27/2020, 08/06/2020 Influenza Vaccines (#1) 2024 02/04/20 23, 01/29/2022, 03/08/2021, Additional history exists DTaP,Tdap,and Td Vaccines (7 - Td or [...] 17 Meningococcal Vaccine Completed 05/10/2019, 015 Insurance [facility] EPO OPEN ACCESS Care Teams Body Specialist Relationship Specialty Start Date End Date Verna Coronado NP [address] [place] [address] [place] [address] PCP - General Pediatrics 10/19/22
== END 2024-12-26 08:23 | disposition home or self-care (01) ==
LOC: HO.HMCH 08:01
PROVIDERS: PCP Internal Medicine; Visit Provider Internal Medicine
DX: Z00.00 Encounter for general adult medical examination without abnormal findings (principal)

== ENCOUNTER 2025-01-23 12:11 | Outpatient (REF) | payer BC, SELFPAY ==
[2025-01-23 12:58] LABS: Hematocrit 42.4 % (42.0-52.0); Hemoglobin 14.1 g/dl (14.0-18.0); Mean Corpuscular HGB Conc 33.3 g/dl (31.0-36.0); Mean Corpuscular Hemoglobin 28.8 pg (27.0-33.0); Mean Corpuscular Volume 86.7 fL (80.0-98.0); NRBC Abs Auto 0.000 X10*3/uL (0.0-0.012); NRBC Pct Auto 0.0 /100WBC (0.0-0.2); Platelet Count 250 X10*3/uL (160-400); Red Blood Count 4.89 X10*6/uL (4.60-5.80); White Blood Count 5.6 X10*3/uL (4.8-10.8)
[2025-01-23 12:58] LABS: Appearance Urine Clear; Glucose Urine UA Negative (Negative); PH 7.0 (5.0-9.0); Specific Gravity - Urine 1.025 (1.005-1.025)
[2025-01-23 13:30] LABS: Alanine Aminotransferase 24 U/L (0-40); Albumin Level 5.1 g/dL (3.5-5.0); Alkaline Phosphatase 50 U/L (39-117); Anion Gap 11 (12-20); Aspartate Amino Transferase 21 U/L (5-37); Blood Urea Nitrogen 16 mg/dL (9-16); Calcium 9.6 mg/dL (8.4-10.2); Carbon Dioxide 30 mmol/L (22-29); Chloride 101 mmol/L (96-108); Estimated Glomerular Filt Rate > 60; Potassium 4.3 mmol/L (3.3-5.1); Sodium 138 mmol/L (135-145); Total Protein 8.2 g/dL (6.5-8.0)
[2025-01-23 13:37] LABS: Thyroid Stimulating Hormone 0.93 uIU/mL (0.32-4.0)
--- OUTSIDE RECORDS SUMMARY | 2025-01-23 14:55 | XMS_ITS | Clinical Summary ---
Author Organization [facility] Address [address] [place] [phone] Phone Care Team Providers Care Netting Weaver Name Role Phone Jessicadonald Verna JOHNIE Primary Care Provider [phone] Allergies Active Allergy Reactions Criticality Noted Date [...] 2 - Standard) 2019 Influenza Vaccines (#1) 2024 02/04/20 23, 01/29/2022, 03/08/2021, Additional history exists COVID-19 Vaccine (4 - 2024-2 6 season) 2024 03/08/2021, 08/27/2020, 08/06/2020 DTaP,Tdap,and Td [...] 17 Meningococcal Vaccine Completed 05/10/2019, 015 Insurance [facility] EPO OPEN ACCESS Care Teams Netting Weaver Relationship Specialty Start Date End Date Verna Coronado NP [address] [place] [address] [place] [address] PCP - General Pediatrics 10/19/22
--- OUTSIDE RECORDS SUMMARY | 2025-01-23 14:55 | XMS_ITS | Encounter Summary ---
Author Organization [facility] Address [address] [place] [phone] Phone Care Team Providers Care Mobile Home Laborer Name Role Phone Verna Coronado NP Primary Care Provider [phone] Encounter Details Date Type Department Care Team (Late st Contact Info) Description 08/28/2014 Conversion Encounter [facility] [address] [place] [address] [place] [address] Social History Tobacco Use Types Packs/Day Years [...] on filedocumented in this encounter Care Teams Mobile Home Laborer Relationship Specialty Start Date End Date Verna Coronado NP [address] [place] [address] [place] [address] PCP - General Pediatrics 10/19/22 documented as of this encounter
--- OUTSIDE RECORDS SUMMARY | 2025-01-23 14:55 | XMS_ITS | Encounter Summary ---
Author Organization [facility] Address [address] [place] [address] Phone Care Team Providers Care Baggage Porter Head Name Role Phone Verna Coronado NP Primary Care Provider [phone] Encounter Details Date Type Department Care Team (Late st Contact Info) Description 12/16/2016 Conversion Encounter [facility] - [address] [address] Social History Tobacco Use Types Packs/Day Years [...] on filedocumented in this encounter Care Teams Baggage Porter Head Relationship Specialty Start Date End Date Verna Coronado NP [address] [facility] [place] [address] PCP - General Pediatrics 10/19/22 documented as of this encounter
--- OUTSIDE RECORDS SUMMARY | 2025-01-23 14:55 | XMS_ITS | Clinical Summary ---
Author Organization [facility] Address [address] [place] [address] Care Team Providers Care Forge Press Operator Name Role Phone Mina Centeno MD Primary [...] Vaccine (1 - Male 3-dose series) 2018 DTaP/Tdap/Td (7 - Td or Tdap) 03/11/2024 03/11/2014, 08/01/2007, 09/07/2004, Additional history exists COVID-19 Vaccine ( - 2023- season) 2024 Influenza (#1) 2024 03/11/2014, 12/31, 02/23/2012 Zoster [...] age to complete this topic Care Teams Forge Press Operator Relationship Specialty Start Date End Date Mina Centeno MD PCP - General 12/06/22 Mina Centeno MD PCP - Backup PCP Pediatrics 06/02/23
== END 2025-01-23 12:12 | disposition home or self-care (01) ==
LOC: HO.LAB 12:11
PROVIDERS: PCP Internal Medicine; Visit Provider Internal Medicine
DX: Z00.00 Encounter for general adult medical examination without abnormal findings (principal); Z13.29 Encounter for screening for other suspected endocrine disorder
CPT/HCPCS: 36415; 80048; 80076; 81003; 84443; 85027